=== PATIENT | male | born 1995 | race Caucasian/White ===

== ENCOUNTER 2017-01-21 20:36 | Emergency (ER) | payer BC ==
[~2017-01-21] VITALS: Ht 188 cm; Wt 95.3 kg
[~2017-01-21 20:36] MED LIST: BACTRIM-DS1 EA ORAL; BENTYL10 MG ORAL; DOXYCYCLINE MO100 MG ORAL; LEVAQUIN750 MG ORAL; NKM; ZOFRAN4 M3 ORAL
[2017-01-21 21:10] VITALS: BP 115/64
[2017-01-21] MEDS ORDERED: Azithromycin 250mg tab ORAL ONE (21:45)
--- NOTE | 2017-01-21 22:02 | Emergency Room Report ---
History of Present Illness General Chief Complaint: Fever Source: Patient Present Illness HPI Patient presents with 2 days of pharyngitis. His tonsils are swollen and painful. He took some ibuprofen and some Advil. He says the pain is now down to 6. Able to swallow. He's had some fevers and chills and muscle aches. He has chronic problems with his tonsils. Able to swallow. Sharp/burning pain. The patient also is asking for a prescription for Humara. Denies any abdominal pain, vomiting, diarrhea or dysuria. He states he's had some chronic dizziness when he stands. Allergies: Coded Allergies: Cat Dander (Verified Allergy, Mild, 01/13/16) Dog Dander (Verified Allergy, Mild, 01/13/16) Patient History Past Medical History: see triage record Social History: Reports: smoking - prior and second hand, Denies: alcohol use, drug use Social History Narrative works at [employer] Wednesday Reviewed Nursing Documentation: PMH: Agreed, PSxH: Agreed Nursing Documentation-PMH Hx Cardiac Problems: No Hx Cancer: No Hx Gastrointestinal Problems: Yes - HEP C Hx Neurological Problems: No Review of Systems All Other Systems: negative except mentioned in HPI Physical Exam Vital Signs Date Time Temp Pulse Resp B/P Pulse Ox O2 Delivery O2 Flow Rate FiO2 01/21/17 21:05 100.8 86 16 115/64 96 Room Air Sp02 EP Interpretation: reviewed, normal General Appearance: well appearing, no apparent distress Head: normocephalic, atraumatic Eyes: bilateral eye PERRL, bilateral eye normal inspection ENT: moist mucus membranes, tonsillar swelling, pharyngeal erythema, tonsillar exudate Neck: full range of motion, supple Respiratory: no respiratory distress, speaking full sentences Cardiovascular #1: normal peripheral pulses, regular rate, rhythm Gastrointestinal: normal inspection Musculoskeletal: digits/nails normal, gait/station normal, normal range of motion Neurologic: alert, oriented x3, normal gait, grossly normal Psychiatric: mood/affect normal Skin: no rash Medical Decision Making Diagnostic Impression: Primary Impression: Pharyngitis Qualified Codes: J02.9 - Acute pharyngitis, unspecified ER Course Patient with sore throat. Ddx: strep, viral. No evidence of [employer]. Not toxic and not dehydrated. Abx indicated as well as decadron. Improved with treatment. Dizziness sounds orthostatic. Discussed prevention. Patient stable for outpatient observation and treatment. Last Vital Signs Date Time Temp Pulse Resp B/P Pulse Ox O2 Delivery O2 Flow Rate FiO2 01/21/17 22:35 100.8 75 15 125/70 98 Room Air Status: improved Disposition: HOME, SELF-CARE Condition: Improved Scripts Ibuprofen* (MOTRIN*) 600 Mg Tablet 600 MG ORAL Q6H Y for For Pain, #20 TAB Prov: Marques Carranza M.D. 01/21/17 Acetaminophen (Tylenol) 325 Mg Tablet 650 MG ORAL Q6H Y for Prn Pain/Headache/Temp > 101, #20 TAB 0 Refills Prov: Marques Carranza M.D. 01/21/17 Azithromycin* (ZITHROMAX*) 250 Mg Tablet 250 MG ORAL DAILY, #4 TAB Prov: Marques Carranza M.D. 01/21/17 Marques Carranza M.D. Jan 21, 2017 22:02
[2017-01-21] MEDS ORDERED: ZITHROMAX250 MG ORAL (22:06)
[2017-01-21] MEDS ORDERED: IBUPROFEN600 MG ORAL (22:06)
[2017-01-21] MEDS ORDERED: TYLENOL325 MG ORAL (22:06)
[2017-01-21 22:35] VITALS: BP 125/70
== END 2017-01-21 22:35 | disposition home or self-care (01) ==
LOC: EMR 21:40
DX: J02.9 Acute pharyngitis, unspecified (principal); Z91.048 Other nonmedicinal substance allergy status; Z86.19 Personal history of other infectious and parasitic diseases; Z87.891 Personal history of nicotine dependence
CPT/HCPCS: 99284; J8540